=== PATIENT | female | born 1985 | race Caucasian/White ===

== ENCOUNTER 2021-10-30 15:13 | Emergency (ER) | payer OTHER, SELFPAY ==
[2021-10-30 15:31] VITALS: BP 150/88; PULSE 98; RESP 18; TEMP 37.3; O2SAT 99
--- NOTE | 2021-10-30 15:38 | ED.URI ---
HPI - URI/Sore Throat General Chief Complaint: Upper Respiratory Infection Stated Complaint: cough,headache,nausea Time Seen by Provider: 10/30/21 15:38 Source: patient Mode of arrival: ambulatory Limitations: no limitations History of Present Illness HPI Narrative: Kianna Watts is a 36 yo female with no PMH who comes to express care with headache, cough, itchy throat, taking on regular, nausea x 1wk. Had negative COVID test on last . has had flashes but not sure if it is related to total hysterectomy she had because of endometriosis and she does not take estrogen Related Data Allergies Allergy/AdvReac Type Severity Reaction Status Date / Time No Known Allergies Allergy Verified 10/30/21 15:39 Review of Systems Review of Systems: CONSTITUTIONAL: Denies fever, chills, sweats. Not feeling well EYES: Denies visual changes, redness, discharge. ENT: Denies rhinorrhea, congestion, scratchy sore throat with submandibular tenderness, right otalgia. CARDIOVASCULAR: Denies chest pain, palpitations, edema. RESPIRATORY: Denies dyspnea, wheezing, cough GASTROINTESTINAL: Denies abdominal pain, nausea, vomiting, diarrhea. GENITOURINARY: Denies dysuria, hematuria, abnormal discharge SKIN: Denies rash or itching. NEUROLOGIC: Denies numbness, or focal weakness. PSYCHIATRIC: Denies anxiety or depression. [facility] Past Medical History Medical History Endometriosis Surgical History Surgical History History of hysterectomy Social History Social History (Updated 10/30/21 @ 15:49 by Tory Vidal CNP) Smoking status: Never smoker Alcohol intake: current Comments At time of signature, I agree with nursing past medical, surgical, social and family history. There is no relevant family history pertinent to the presenting complaint. Exam Narrative: GENERAL: This is a well-nourished, well-developed patient, in mild distress. HEAD: normocephalic, atraumatic. EYES: Sclera clear/white. Vision is grossly intact. EARS: External ears normal, auditory canals clear and without drainage,R bulging TM. Hearing grossly intact. NOSE: External nose normal without nasal discharge, nares with redness, no rhinorrhea. THROAT: Mucous membranes moist, posterior pharynx erythema with white exudate NECK: Neck supple, tender submandibular lymph node CARDIOVASCULAR: Regular rate and rhythm without murmurs, gallops, or rubs. RESPIRATORY: Clear to auscultation. Breath sounds equal bilaterally. No wheezes, rales, or rhonchi. GASTROINTESTINAL: Abdomen soft, non-tender, SKIN: warm, intact with no suspicious lesions or rash, good texture and turgor. NEURO: awake, alert, and oriented to person, place and time. There were no obvious focal neurologic abnormalities. Steady gait EXTREMITIES: Normal range of motion. BACK: Nontender without deformity Course Course Emergency Course: Patient here for 1 week of symptoms of sore throat cough not feeling well intermittently feeling warm; blood pressure is elevated she follow-up with primary care physician within the week COVID PCR done Strep test-negative Started on amoxicillin due to symptoms and history May not return to work until PCR for COVID return Level of Care: Express Care Visit Vital Signs Vital signs: Vital Signs Temperature 99.2 F 10/30/21 15:31 Pulse Rate 98 10/30/21 15:31 Respiratory Rate 18 10/30/21 15:31 Blood Pressure 150/88 H 10/30/21 15:31 Pulse Oximetry 99 10/30/21 15:31 Temperature 99.2 F 10/30/21 15:31 Pulse Rate 98 10/30/21 15:31 Respiratory Rate 18 10/30/21 15:31 Blood Pressure 150/88 H 10/30/21 15:31 Pulse Oximetry 99 10/30/21 15:31 MDM - URI/Sore Throat Differential Diagnosis Differential diagnosis: Likely upper respiratory infection, viral infection, pharyngitis and other Lab Data Labs: Lab Results 10/30/21 Range/Units
[2021-11-01 18:18] LABS: SARS-CoV-2 RNA PCR Negative
== END 2021-10-30 16:06 | disposition home or self-care (01) ==
PROVIDERS: Emergency Provider Nurse Practitioner
DX: J02.9 Acute pharyngitis, unspecified (principal); Z20.822 Contact with and (suspected) exposure to COVID-19; N80.9 Endometriosis, unspecified
CPT/HCPCS: 87081; 87880; 99213; C9803; G0463; U0003; U0005